=== PATIENT | male | born 2000 | race Caucasian/White ===

== ENCOUNTER 2020-12-14 11:03 | Emergency (ER) | payer OTHER ==
[~2020-12-14] VITALS: Ht 167.6 cm; Wt 68.2 kg
[2020-12-14 12:20] LABS: COVID AG,FIA SOURCE NASOPHARYNGEAL
[2020-12-14 12:28] VITALS: BP 141/73
[2020-12-14 12:50] LABS: INFLUENZA TYPE A NEGATIVE FOR TYPE A (NEGATIVE); INFLUENZA TYPE B NEGATIVE FOR TYPE B (NEGATIVE)
== END 2020-12-14 13:38 ==
LOC: EDUNIT# 11:03 → EMS 11:15
DX: R05 Cough (principal); J02.9 Acute pharyngitis, unspecified; Z20.822 Contact with and (suspected) exposure to COVID-19
CPT/HCPCS: 87426; 87804; 99283; U0003

== ENCOUNTER 2023-04-20 19:06 | Emergency (ER) | payer MEDICAID, OTHER ==
[~2023-04-20] VITALS: Ht 167.6 cm; Wt 75.0 kg
[2023-04-20 19:22] VITALS: TEMP 98.3
[2023-04-20 20:23] LABS: APPEARANCE,URINE CLEAR (CLEAR); BILIRUBIN,URINE NEGATIVE (NEGATIVE); COLOR,URINE YELLOW (YELLOW); GLUCOSE, URINE (UA) TRACE mg/dL (NEGATIVE); KETONES,URINE 40-60 mg/dL (NEGATIVE); LEUKOCYTE ESTERASE ,URINE NEGATIVE (NEGATIVE); NITRATE,URINE NEGATIVE (NEGATIVE); OCCULT BLOOD,URINE NEGATIVE (NEGATIVE); PH,URINE 5.5 (5.0-8.0); PH,URINE DRUG SCREEN 5.5 (5.0-8.0); PROTEIN,URINE 30-70 mg/dL (NEGATIVE); SPECIFIC GRAVITIY, URINE 1.042 (1.003-1.030)
[2023-04-20 20:29] LABS: ALCOHOL, URINE DRUG SCREEN NEGATIVE (NEGATIVE); AMPHET/METH SCREEN,URINE NEGATIVE (NEGATIVE); BARBITURATE SCREEN, URINE NEGATIVE (NEGATIVE); BENZODIAZEPINES SCREEN,URINE NEGATIVE (NEGATIVE); CANNABINOID SCREEN,URINE NEGATIVE (NEGATIVE); COCAINE SCREEN,URINE NEGATIVE (NEGATIVE); METHADONE SCREEN, URINE NEGATIVE (NEGATIVE); OPIATE SCREEN,URINE NEGATIVE (NEGATIVE); PHENCYCLIDINE SCREEN,URINE NEGATIVE (NEGATIVE)
[2023-04-20 20:35] LABS: BASOPHILS % (AUTO) 0.3 % (0.0-2.0); EOSINOPHILS % (AUTO) 0.5 % (1.0-6.0); HEMATOCRIT 45.8 % (41-53); LYMPHOCYTES # (AUTO) 0.4 K/uL (1.0-4.8); LYMPHOCYTES % (AUTO) 5.9 % (22.0-44.0); MEAN CORPUSCULAR HEMOGLOBIN 29.9 pg (26.0-34.0); MEAN CORPUSCULAR VOLUME 86 fL (80-100); MONOCYTES # (AUTO) 0.9 K/uL (0.1-1.0); MONOCYTES % (AUTO) 12.8 % (2.0-9.0); NEUTROPHILS # (AUTO) 5.7 K/uL (1.8-7.7); NEUTROPHILS % (AUTO) 80.5 % (40.0-70.0); PLATELET COUNT (AUTO) 156 K/uL (150-450); RED BLOOD CELL COUNT(AUTO) 5.35 MIL/uL (4.50-5.90); RED CELL DISTRIBUTION WIDTH 13.6 % (11.5-14.5); WHITE BLOOD COUNT (AUTO) 7.1 K/uL (4.5-11.0)
[2023-04-20 20:42] LABS: ANION GAP 11 mmol/L (8-16); CALCIUM, TOTAL 9.4 mg/dL (8.8-10.5); CARBON DIOXIDE 28 mmol/L (22-29); CHLORIDE 98 mmol/L (98-107); CREATININE 1.11 mg/dL (0.60-1.30); GLOMERULAR FILTR. RATE CALC > 60 mL/min (>60); GLUCOSE,RANDOM 111 mg/dL (70-110); POTASSIUM 3.7 mmol/L (3.5-5.1); SODIUM SERUM 137 mmol/L (136-145); UREA NITROGEN, BLOOD 17 mg/dL (7-18)
[2023-04-20] MEDS ORDERED: DIPHENOXYLATE/ATROP 2.5-0.025 MG TABLET PO ONE (21:15)
[2023-04-20] MEDS ORDERED: ONDANSETRON HCL 4 MG/2 ML VIAL IM ONE (21:15)
[2023-04-20] MEDS ORDERED: ACETAMINOPHEN 500 MG TABLET PO ONE (21:15)
[2023-04-20] MEDS ORDERED: ONDA-104 PO (21:51)
[2023-04-20] MEDS ORDERED: ACET-66 PO (21:51)
[2023-04-20] MEDS ORDERED: DIPH-654 PO (21:51)
[2023-04-20 22:09] VITALS: BP 132/67; PULSE 75; RESP 17
== END 2023-04-20 22:13 | disposition home or self-care (01) ==
LOC: EMS 19:07
DX: T19.4XXA Foreign body in penis, initial encounter (principal); K52.9 Noninfective gastroenteritis and colitis, unspecified
CPT/HCPCS: 80048; 80307; 81003; 85025; 96372; 99283; 99284; J2405